=== PATIENT | male | born 1950 | race Caucasian/White ===

== ENCOUNTER 2017-11-20 19:02 | Emergency (ER) | payer MEDICARE, OTHER ==
--- OUTSIDE RECORDS SUMMARY | 2017-11-20 19:09 | XMS REPORT ---
:1950 External Reference #:[id number] Author Organization [facility] Address [address] [place] [id number] Phone [phone] Care Team Providers Name Role Phone Davin Dotson MD FACP Primary Care Physician Unavailable Payers Type Date Identification Numbers Payment Provider Subscriber Commercial Effective: Policy Number: BS KOBE Vic Lamb Job 2012 [id number] Expires: 2013 Group Name: [facility] [address] [address] PayID: [id number] [place] [address] Medigap Part B Effective: Policy Number: CPHL [employer] [place] M 2012 [id number] Julian Job Group Number: [id number] [address] PayID: [id number] [place] [address] Commercial Effective: Policy Number: [id number] Medicare Vic Lamb 2014 [id number] [facility] Job Expires: 2016 PayID: [id number] [address] [address] [place] [address] Medicare Primary Effective: Policy Number: Medicare [place] Vic Lamb 2016 [id number] Job PayID: [id number] [address] [place] [address] Advance Directives Type Date Description Status Comment Other Directive 01/17/2007 Living Will, Health Care Current and Verified Proxy Problems Date Description Provider Status Onset: 09/14/2017 Obstructive sleep apnea syndrome Davin Dotson MD Active Onset: 08/24/2016 Polymyalgia rheumatica Davin Dotson MD Active Onset: 12/31/2014 Localized, primary osteoarthritis of Davin Dotson MD Active the ankle and/or foot Onset: 10/02/2014 Hammer toe Davin Dotson MD Active Onset: 07/31/2012 Non-neoplastic nevus Davin Dotson MD Active Family History Date Family Member(s) Problem(s) Comments Father Lung Cancer : (age Father due to Lung Smoker, heavy ETOH use and 62 Years) Cancer was obese. 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 Hobbies Golfing ETOH Use Currently consumes alcohol 5 per week "[place] or [place]" till 2014 and reduced use to 2-3 per week as of 2015. Smoking 1980 Patient is a former smoker 1 PPD for 10 years, "[place] in 1980" Recreational Drug Use Denies Drug Use Daily Caffeine Coffee 2 / day Exercise Type/Frequency Exercises regularly Play golf during summer. Allergies, Adverse Reactions, Alerts Date Description Reaction Status Severity Comments 11/29/2011 Penicillin Rash active Mild to Moderate Medications Medication Date Status Form Strength Qnty SIG Indications Ordering Provider Shingrix 11/09 Active Suspension 50mcg 1unit one Z00.01 Rec s intramuscul Henna Dotson ar dose now and repeat 2nd dose after 2-6 months. Prevnar 13 11/09 Active Suspension 1unit administer Z00.01 Jin /2018 s half a Henna Dotson, milliliters intramuscul kina one time for inactivated vaccination to prevent pneumococca l infection Cpap 10/17 Active G47.33 Gia, MD Armando Levocetirizine 09/14 Active Tablets 5mg 30tab take one J30.9 Jin Dihydrochloride /2017 s tablet by Henna Dotson mouth in MD the evening for allergic rhinitis Amlodipine 09/14 Active Tablets 2.5mg 90tab take 1 I10 Jin Besylate s tablet by Henna Dotson mouth daily for high blood pressure Prednisone 07/27 Active Tablets 10mg 90tab 1 by mouth M35.3 Jin /2017 s every day A MD Mauri Vitamin D3 07/27 Active Capsules 2000Unit 1 by mouth M62.81 Jin /2018 every day Henna Dotson for bone AR health Flonase Allergy 03/02 Active Suspension 50mcg/Act 19.8m inhale 2 J30.9 Jin Relief l sprays into A Mauri nostril daily in each nostril for nose inflammatio n Multivitamins 09/02 Active Capsules 1 by mouth R53.83 Unknown every day Xyzal Allergy 03/02 Hx Tablets 5mg 30tab take 1 J30.9 Jin 24HR s tablet by Henna Dotson, - mouth every MD 09/14 evening allergy Prednisone 10/27 Hx Tablets 1mg 300ta 10 by mouth M35.3 Jin /2016 bs every day Jeramie Acuña or as 07/27 recommended . M62.81 Prednisone 08/18/2016 - Hx Tablets 10mg 60tabs 2 by mouth every M35.3 Jin A 10/27/2016 day or as MD Mauri recommended M62.81 Doxycycline 08/18/2016 - Hx Tablets 100mg 28tabs take 1 M62.81 Jin A Hyclate 08/18/2016 tablet by MD Mauri mouth 2 times per day for 14 days Aleve 04/04/2014 - Hx Tablets 220mg 1 by mouth 719.49 Unknown 08/24/2016 twice a day as needed Diclofenac 10/09/2013 - Hx Tablets DR 50mg 60tabs take 1 [address]26[address] 12/13/2013 tablet by MD Mauri mouth 2 times per day as needed for arthritis 719.49 Diclofenac 08/09/2013 - Hx Tablets ER 100mg 30tabs take 1 726.65 Jin A Sodium ER 10/09/2013 24HR tablet by MD Mauri mouth daily as needed for arthritis Vitamin D-3 08/22/2012 - Hx Tablets 2000Unit 1 by mouth 268.9 Jin A 08/22/2012 every day MD Mauri Zostavax 07/31/2012 - Hx Solution [id number] 1units 1 injection Jin A 10/01/2014 Rec /0.65ML MD Mauri No Active 11/29/2011 - Hx Jin A Medications 07/31/2012 MD Mauri Aleve 04/04/2009 - Hx Tablets 220mg 1 by mouth 719.49 Unknown 08/09/2013 twice a day Immunizations CPT Code Status Date Vaccine Lot # [id number] Given 01/01/2017 Influenza Vaccine Quadrivalent Preser/Antibiotic Free [place] Use [id number] Given 01/22/2016 Influenza Virus Split 3 Yrs And Above For Intramuscular Use 48384 Given 01/03/2016 Influenza Virus Split 3 Yrs And Above For Intramuscular Use U-Flu Given 02/14/2015 Influenza,Unspecified 25920 Given 02/14/2015 Influenza Virus Split 3 Yrs And Above For Intramuscular Use 66560 Given 10/02/2014 Pneumococcal Vaccine 2Yrs Or Older [id number] 38249 Given 12/03/2013 Zoster Shingles Vaccine For Subcutaneous Injection 69559 Given 08/03/2011 Tdap-Tetanus, Diphtheria Toxoids/Acellular Pertussis Vaccine 7+ 35381 Given 12/03/2010 Influenza Virus Split 3 Yrs And Above For Intramuscular Use Vital Signs Date Vital Result Comment 11/09/2017 Body Temperature 98.2 F O2 % BldC Oximetry 98 % Heart Rate 65 /min BP Systolic 125 mmHg BP Diastolic 80 mmHg BMI (Body Mass Index) 31.2 kg/m2 Weight 230.00 lb Height 72 inches 6'0" 09/29/2017 Heart Rate 72 /min BP Systolic 110 mmHg BP Diastolic 75 mmHg Weight 223.00 lb 09/14/2017 Heart Rate 86 /min BP Systolic 145 mmHg BP Diastolic 80 mmHg Weight 224.00 lb 07/27/2017 Heart Rate 60 /min BP Systolic 125 mmHg BP Diastolic 75 mmHg Weight 226.00 lb w/ Shoes 07/12/2017 Heart Rate 56 /min BP Systolic 170 mmHg BP Diastolic 85 mmHg BP Systolic Recheck 165 mmHg BP Diastolic Recheck 90 mmHg BMI (Body Mass Index) 30.6 kg/m2 Weight 226.00 lb Height 72 inches 6'0" 03/02/2017 Body Temperature 97.8 F Heart Rate 64 /min BP Systolic 125 mmHg BP Diastolic 80 mmHg 10/27/2016 Heart Rate 76 /min BP Systolic 122 mmHg BP Diastolic 75 mmHg BMI (Body Mass Index) 28.1 kg/m2 Weight 207.00 lb Height 72 inches 6'0" 08/24/2016 Body Temperature 97.8 F Weight 201.00 lb 08/18/2016 Body Temperature 98.3 F Heart Rate 76 /min BP Systolic 135 mmHg BP Diastolic 80 mmHg Weight 205.00 lb 03/03/2016 Weight 228.00 lb 10/08/2015 O2 % BldC Oximetry 97 % Heart Rate 53 /min BP Systolic 122 mmHg BP Diastolic 70 mmHg BMI (Body Mass Index) 29.3 kg/m2 Weight 219.00 lb Height 72.5 inches 6'0.50" 06/30/2015 O2 % BldC Oximetry 98 % Heart Rate 58 /min BP Systolic 125 mmHg BP Diastolic 80 mmHg Weight 220.00 lb 05/06/2015 Body Temperature 98.4 F Heart Rate 80 /min BP Systolic 115 mmHg BP Diastolic 80 mmHg 10/02/2014 O2 % BldC Oximetry 98 % Heart Rate 61 /min BP Systolic 135 mmHg BP Diastolic 80 mmHg BMI (Body Mass Index) 29.8 kg/m2 Weight 223.00 lb Height 72.5 inches 6'0.50" 10/09/2013 Body Temperature 98.2 F O2 % BldC Oximetry 97 % Heart Rate 84 /min BP Systolic 125 mmHg BP Diastolic 70 mmHg Height 73 inches 6'1" 08/09/2013 Body Temperature 98.3 F O2 % BldC Oximetry 97 % Heart Rate 77 /min BP Systolic 115 mmHg BP Diastolic 80 mmHg BMI (Body Mass Index) 28.4 kg/m2 Weight 215.00 lb in office, clothed Height 73 inches 6'1" 08/22/2012 Heart Rate 68 /min BP Systolic 125 mmHg BP Diastolic 80 mmHg Weight 220.00 lb 07/31/2012 Body Temperature 97.6 F O2 % BldC Oximetry 97 % Ra, AT Rest Heart Rate 65 /min BP Systolic 140 mmHg Bilateral Ue BP Diastolic 85 mmHg Bilateral Ue BMI (Body Mass Index) 29.7 kg/m2 Weight 225.00 lb Height 73 inches 6'1" Results Test Date Test Result H/L Range Note CBC No Diff 10/27/2017 White Blood Count 8.1 10^3/uL 3.5-10.8 Red Blood Count 5.30 10^6/uL 4.00-5.40 Hemoglobin 16.5 g/dL 14.0-18.0 Hematocrit 48 % 42-52 Mean Corpuscular Volume 90 fL 80-94 Mean Corpuscular Hemoglobin 31 pg 27-31 Mean Corpuscular HGB Conc 35 g/dL 31-36 Red Cell Distribution Width 14 % 10.5-15 Platelet Count 222 10^3/uL 150-450 Mean Platelet Volume 7.7 um3 7.4-10.4 Comp Metabolic Panel 10/27/2017 Sodium 141 mmol/L 135-145 Potassium 4.3 mmol/L 3.5-5.0 Chloride 105 mmol/L 101-111 Co2 Carbon Dioxide 28 mmol/L 22-32 Anion Gap 8 mmol/L 2-11 Glucose 91 mg/dL 70-100 Blood Urea Nitrogen 31 mg/dL High 6-24 Creatinine 1.20 mg/dL High 0.67-1.17 BUN/Creatinine Ratio 25.8 High 8-20 Calcium 9.5 mg/dL 8.6-10.3 Total Protein 6.6 g/dL 6.4-8.9 Albumin 4.2 g/dL 3.2-5.2 Globulin 2.4 g/dL 2-4 Albumin/Globulin Ratio 1.8 1-3 Total Bilirubin 0.70 mg/dL 0.2-1.0 Alkaline Phosphatase 83 U/L 34-104 Alt 24 U/L 7-52 Ast 14 U/L 13-39 Egfr Non- 60.2 >60 Egfr 72.9 >60 1 Lipid Profile (Trig/Chol/HDL) 10/27/2017 Triglycerides 138 mg/dL 2 Cholesterol 181 mg/dL 3 HDL Cholesterol 60.3 mg/dL 4 LDL Cholesterol 93 mg/dL 5 Laboratory test finding 10/27/2017 PSA Screening 1.280 ng/mL 0-4.000 6 Metanephrines Plasma 09/15/2017 Plasma Free 0.39 nmol/L <0.90 Normetanephrine Plasma Free Metanephrine 0.22 nmol/L <0.50 7 Hemoglobin/Hematacrit 09/15/2017 Hemoglobin 16.6 g/dL 14.0-18.0 Hematocrit 47 % 42-52 Liver Function Panel 09/15/2017 Total Protein 6.5 g/dL 6.4-8.9 Albumin 4.1 g/dL 3.2-5.2 Globulin 2.4 g/dL 2-4 Albumin/Globulin Ratio 1.7 1-3 Total Bilirubin 0.80 mg/dL 0.2-1.0 Direct Bilirubin 0.10 mg/dL 0.03-0.18 Indirect Bilirubin 0.7 mg/dL 0.3-1.0 Alkaline Phosphatase 83 U/L 34-104 Alt 18 U/L 7-52 Ast 11 U/L Low 13-39 CBC No Diff 07/12/2017 White Blood Count 9.1 10^3/uL 3.5-10.8 Red Blood Count 5.58 10^6/uL High 4.0-5.4 Hemoglobin 17.4 g/dL 14.0-18.0 Hematocrit 49 % 42-52 Mean Corpuscular Volume 88 fL 80-94 Mean Corpuscular Hemoglobin 31 pg 27-31 Mean Corpuscular HGB Conc 36 g/dL 31-36 Red Cell Distribution Width 14 % 10.5-15 Platelet Count 231 10^3/uL 150-450 8 Mean Platelet Volume 8.0 um3 7.4-10.4 Basic Metabolic Panel 07/12/2017 Sodium 138 mmol/L Low 139-145 Potassium 4.4 mmol/L 3.5-5.0 Chloride 105 mmol/L 101-111 Co2 Carbon Dioxide 24 mmol/L 22-32 Anion Gap 9 mmol/L 2-11 Glucose 91 mg/dL 70-100 Blood Urea Nitrogen 26 mg/dL High 6-24 Creatinine 1.11 mg/dL 0.67-1.17 BUN/Creatinine Ratio 23.4 High 8-20 Calcium 9.9 mg/dL 8.6-10.3 Egfr Non- 65.9 >60 Egfr 84.7 >60 9 Laboratory test finding 07/12/2017 Erythrocyte Sed Rate 4 mm/Hr 0-40 CBC No Diff 10/08/2016 White Blood Count 7.8 10^3/uL 3.5-10.8 Red Blood Count 5.06 10^6/uL 4.0-5.4 Hemoglobin 15.6 g/dL 14.0-18.0 Hematocrit 46 % 42-52 Mean Corpuscular Volume 91 fL 80-94 Mean Corpuscular Hemoglobin 31 pg 27-31 Mean Corpuscular HGB Conc 34 g/dL 31-36 Red Cell Distribution Width 14 % 10.5-15 Platelet Count 198 10^3/uL 150-450 Mean Platelet Volume 8 um3 7.4-10.4 Basic Metabolic Panel 10/08/2016 Sodium 139 mmol/L 133-145 Potassium 4.1 mmol/L 3.5-5.0 Chloride 106 mmol/L 101-111 Co2 Carbon Dioxide 27 mmol/L 22-32 Anion Gap 6 mmol/L 2-11 Glucose 95 mg/dL 70-100 Blood Urea Nitrogen 29 mg/dL High 6-24 Creatinine 1.03 mg/dL 0.67-1.17 BUN/Creatinine Ratio 28.2 High 8-20 Calcium 9.6 mg/dL 8.6-10.3 Egfr Non- 72.0 >60 Egfr 92.6 >60 10 Laboratory test finding 10/08/2016 Erythrocyte Sed Rate 5 mm/Hr 0-40 Lipid Profile (Trig/Chol/HDL) 10/08/2016 Triglycerides 93 mg/dL <150 11 Cholesterol 170 mg/dL <200 12 HDL Cholesterol 67.9 mg/dL >40 13 LDL Cholesterol 84 mg/dL <130 14 Laboratory test finding 10/08/2016 PSA Screening 1.019 ng/mL 0-4.000 15 Urinalysis Profile 10/08/2016 Urine Color Yellow Urine Appearance Clear Urine Specific Mallie 1.021 1.010-1.030 Urine pH 5.0 5-9 Urine Urobilinogen Negative Negative Urine Ketones Negative Negative Urine Protein Negative Negative Urine Leukocytes Negative Negative Urine Blood Negative Negative Urine Nitrite Negative Negative Urine Bilirubin Negative Negative Urine Glucose Negative Negative Xray 08/18/2016 Hand, Min. 3 Views, Bilateral Moderate OA CBC Auto Diff 08/18/2016 White Blood Count 9.7 10^3/uL 3.5-10.8 Red Blood Count 5.19 10^6/uL 4.0-5.4 Hemoglobin 15.5 g/dL 14.0-18.0 Hematocrit 45 % 42-52 Mean Corpuscular Volume 87 fL 80-94 Mean Corpuscular Hemoglobin 30 pg 27-31 Mean Corpuscular HGB Conc 34 g/dL 31-36 Red Cell Distribution Width 14 % 10.5-15 Platelet Count 189 10^3/uL 150-450 Mean Platelet Volume 9 um3 7.4-10.4 Abs Neutrophils 7.8 10^3/uL High 1.5-7.7 Abs Lymphocytes 1.2 10^3/uL 1.0-4.8 Abs Monocytes 0.5 10^3/uL 0-0.8 Abs Eosinophils 0.2 10^3/uL 0-0.6 Abs Basophils 0 10^3/uL 0-0.2 Abs Nucleated RBC 0.01 10^3/uL Granulocyte % 80.3 % 38-83 Lymphocyte % 11.9 % Low 25-47 Monocyte % 5.5 % 1-9 Eosinophil % 1.9 % 0-6 Basophil % 0.4 % 0-2 Nucleated Red Blood Cells % 0.1 Basic Metabolic Panel 08/18/2016 Sodium 136 mmol/L 133-145 Potassium 3.8 mmol/L 3.5-5.0 Chloride 104 mmol/L 101-111 Co2 Carbon Dioxide 23 mmol/L 22-32 Anion Gap 9 mmol/L 2-11 Glucose 91 mg/dL 70-100 Blood Urea Nitrogen 22 mg/dL 6-24 Creatinine 1.05 mg/dL 0.67-1.17 BUN/Creatinine Ratio 21.0 High 8-20 Calcium 9.5 mg/dL 8.6-10.3 Egfr Non- 70.5 >60 Egfr 90.6 >60 16 Laboratory test finding 08/18/2016 Erythrocyte Sed Rate 10 mm/Hr 0-40 Anti Nuclear Antibody 0.4 U 17 Rheumatoid Factor <15 IU/mL <15 18 Uric Acid 6.4 mg/dL 4.4-7.6 Lyme Western Blot 08/18/2016 Lyme Disease IgG Ab WB Negative Negative Lyme Disease IgG Bands Present p41, kDa Lyme Disease IgM Ab WB Negative Negative Lyme Disease IgM Bands Present No bands detecte <SEE NOTE> kDa 19 Lyme Disease Interpretation See Comment 20 Xray 05/11/2016 Ultrasound, Retroperitoneal Benign mass (Eg, Renal, Aorta, Nodes) Basic Metabolic Panel 03/18/2016 Sodium 137 mmol/L 133-145 21 Potassium 4.4 mmol/L 3.5-5.0 21 Chloride 103 mmol/L 101-111 21 Co2 Carbon Dioxide 26 mmol/L 22-32 21 Anion Gap 8 mmol/L 2-11 21 Glucose 104 mg/dL High 70-100 21 Blood Urea Nitrogen 27 mg/dL High 6-24 21 Creatinine 1.30 mg/dL High 0.67-1.17 21 BUN/Creatinine Ratio 20.8 High 8-20 21 Calcium 9.7 mg/dL 8.6-10.3 21 Egfr Non- 55.1 >60 21 Egfr 70.8 >60 21, 22 Laboratory test finding 02/23/2016 Potassium Redraw 4.0 mmol/L 3.5-5.0 Magnesium 2.0 mg/dL 1.9-2.7 Ast Redraw 13 U/L 13-39 Laboratory test finding 02/23/2016 Lactic Acid 0.8 mmol/L 0.5-2.0 23 CBC Auto Diff 02/23/2016 White Blood Count 9.0 10^3/uL 3.5-10.8 Red Blood Count 5.49 10^6/uL High 4.0-5.4 Hemoglobin 16.9 g/dL 14.0-18.0 Hematocrit 48 % 42-52 Mean Corpuscular Volume 87 fL 80-94 Mean Corpuscular Hemoglobin 31 pg 27-31 Mean Corpuscular HGB Conc 35 g/dL 31-36 Red Cell Distribution Width 14 % 10.5-15 Abs Neutrophils 6.3 10^3/uL 1.5-7.7 Abs Lymphocytes 1.8 10^3/uL 1.0-4.8 Abs Monocytes 0.6 10^3/uL 0-0.8 Abs Eosinophils 0.3 10^3/uL 0-0.6 Abs Basophils 0.1 10^3/uL 0-0.2 Abs Nucleated RBC 0.05 10^3/uL Granulocyte % 69.5 % 38-83 Lymphocyte % 20.4 % Low 25-47 Monocyte % 6.5 % 1-9 Eosinophil % 3.0 % 0-6 Basophil % 0.6 % 0-2 Nucleated Red Blood Cells % 0.6 Platelet Count 309 10^3/uL 150-450 24 Mean Platelet Volume 9 um3 7.4-10.4 Laboratory test finding 02/23/2016 Activated Partial 16.8 seconds Low 26.0 -36.3 Thrombo Time D Dimer Quantitative 580 ng/mL High Less Than 230 25 B Type Natriuretic Peptide 203 pg/mL High 26 Inr/Protime 02/23/2016 Inr 0.91 0.89-1.11 Laboratory test finding 02/23/2016 TSH (Thyroid Stim Horm) 1.95 mcIU/mL 0.34-5.60 Magnesium TNP mg/dL 1.9-2.7 27 CKMB 02/23/2016 CKMB ng/mL 3.1 ng/mL 0.6-6.3 Laboratory test finding 02/23/2016 Lipase 17 U/L 11.0-82.0 Creatine Kinase(CK) 76 U/L 10-223 C Reactive Protein 1.24 mg/L < 5.00 28 Troponin I 0.01 ng/mL <0.04 29 Comp Metabolic Panel 02/23/2016 Sodium 136 mmol/L 133-145 Chloride 103 mmol/L 101-111 Co2 Carbon Dioxide 26 mmol/L 22-32 Glucose 83 mg/dL 70-100 Blood Urea Nitrogen 28 mg/dL High 6-24 Creatinine 1.42 mg/dL High 0.67-1.17 BUN/Creatinine Ratio 19.7 8-20 Calcium 9.4 mg/dL 8.6-10.3 Total Protein 7.1 g/dL 6.4-8.9 Albumin 4.1 g/dL 3.2-5.2 Globulin 3.0 g/dL 2-4 Albumin/Globulin Ratio 1.4 1-3 Total Bilirubin 0.80 mg/dL 0.2-1.0 Alkaline Phosphatase 75 U/L 34-104 Alt 17 U/L 7-52 Egfr Non- 49.7 >60 Egfr 64.0 >60 30 Potassium TNP mmol/L 3.5-5.0 31 Anion Gap TNP mmol/L 2-11 Ast TNP U/L 13-39 32 Xray 10/29/2015 Ultrasound, Stable Rt Adrenal Retroperitoneal (Eg, ms Renal, Aorta, Nodes) Comp Metabolic Panel 10/10/2015 Sodium 137 mmol/L 133-145 Potassium 4.4 mmol/L 3.5-5.0 Chloride 105 mmol/L 101-111 Co2 Carbon Dioxide 24 mmol/L 22-32 Anion Gap 8 mmol/L 2-11 Glucose 101 mg/dL High 70-100 Blood Urea Nitrogen 20 mg/dL 6-24 Creatinine 1.17 mg/dL 0.67-1.17 BUN/Creatinine Ratio 17.1 8-20 Calcium 9.8 mg/dL 8.6-10.3 Total Protein 6.7 g/dL 6.4-8.9 Albumin 4.2 g/dL 3.2-5.2 Globulin 2.5 g/dL 2-4 Albumin/Globulin Ratio 1.7 1-3 Total Bilirubin 1.00 mg/dL 0.2-1.0 Alkaline Phosphatase 87 U/L 34-104 Alt 18 U/L 7-52 Ast 15 U/L 13-39 Egfr Non- 62.4 >60 Egfr 80.2 >60 33 Lipid Profile (Trig/Chol/HDL) 10/10/2015 Triglycerides 110 mg/dL <150 34 Cholesterol 159 mg/dL <200 35 HDL Cholesterol 47.0 mg/dL >35 36 LDL Cholesterol 90 mg/dL <160 37 Laboratory test finding 10/10/2015 PSA Screening 0.867 ng/mL 0-4.000 38 Urinalysis Profile 10/10/2015 Urine Color Yellow Urine Appearance Clear Urine Specific Mallie 1.015 1.010-1.030 Urine pH 5.0 5-9 Urine Urobilinogen Negative Negative Urine Ketones Negative Negative Urine Protein Negative Negative Urine Leukocytes Negative Negative Urine Blood Negative Negative Urine Nitrite Negative Negative Urine Bilirubin Negative Negative Urine Glucose Negative Negative CBC No Diff 10/10/2015 White Blood Count 6.2 10^3/uL 3.5-10.8 Red Blood Count 5.53 10^6/uL High 4.0-5.4 Hemoglobin 16.7 g/dL 14.0-18.0 Hematocrit 49 % 42-52 Mean Corpuscular Volume 88 fL 80-94 Mean Corpuscular Hemoglobin 30 pg 27-31 Mean Corpuscular HGB Conc 34 g/dL 31-36 Red Cell Distribution Width 15 % 10.5-15 Platelet Count 209 10^3/uL 150-450 Mean Platelet Volume 8 um3 7.4-10.4 Basic Metabolic Panel 08/04/2015 Sodium 140 mmol/L 133-145 39 Potassium 4.2 mmol/L 3.5-5.0 39 Chloride 107 mmol/L 101-111 39 Co2 Carbon Dioxide 26 mmol/L 22-32 39 Anion Gap 7 mmol/L 2-11 39 Glucose 106 mg/dL High 70-100 39 Blood Urea Nitrogen 20 mg/dL 6-24 39 Creatinine 1.21 mg/dL High 0.67-1.17 39 BUN/Creatinine Ratio 16.5 8-20 39 Calcium 9.5 mg/dL 8.6-10.3 39 Egfr Non- 60.0 >60 39 Egfr 77.2 >60 39, 40 Basic Metabolic Panel 07/07/2015 Sodium 138 mmol/L 133-145 Potassium 4.2 mmol/L 3.5-5.0 Chloride 106 mmol/L 101-111 Co2 Carbon Dioxide 24 mmol/L 22-32 Anion Gap 8 mmol/L 2-11 Glucose 99 mg/dL 70-100 Blood Urea Nitrogen 26 mg/dL High 6-24 Creatinine 1.40 mg/dL High 0.67-1.17 BUN/Creatinine Ratio 18.6 8-20 Calcium 9.5 mg/dL 8.6-10.3 Egfr Non- 50.7 >60 Egfr 65.2 >60 41 Laboratory test finding 07/07/2015 Cortisol 15.22 ?g/dL 8.7-22.4 42 Acth 18 pg/mL 10-60 43 Renin 1.1 ng/mL/h Low 2.9-10.8 44 CBC No Diff 07/07/2015 White Blood Count 6.6 10^3/uL 3.5-10.8 Red Blood Count 5.30 10^6/uL 4.0-5.4 Hemoglobin 15.8 g/dL 14.0-18.0 Hematocrit 48 % 42-52 Mean Corpuscular Volume 90 fL 80-94 Mean Corpuscular Hemoglobin 30 pg 27-31 Mean Corpuscular HGB Conc 33 g/dL 31-36 Red Cell Distribution Width 14 % 10.5-15 Platelet Count 242 10^3/uL 150-450 Mean Platelet Volume 8 um3 7.4-10.4 Xray 07/02/2015 Ultrasound, Abdominal; 2.5cm Rt Adrenalnode Limited CBC Auto Diff 06/14/2015 White Blood Count 13.3 10^3/uL High 3.5-10.8 Red Blood Count 5.88 10^6/uL High 4.0-5.4 Hemoglobin 17.7 g/dL 14.0-18.0 Hematocrit 52 % 42-52 Mean Corpuscular Volume 88 fL 80-94 Mean Corpuscular Hemoglobin 30 pg 27-31 Mean Corpuscular HGB Conc 34 g/dL 31-36 Red Cell Distribution Width 14 % 10.5-15 Platelet Count 266 10^3/uL 150-450 Mean Platelet Volume 8 um3 7.4-10.4 Abs Neutrophils 12.4 10^3/uL High 1.5-7.7 Abs Lymphocytes 0.7 10^3/uL Low 1.0-4.8 Abs Monocytes 0.3 10^3/uL 0-0.8 Abs Eosinophils 0 10^3/uL 0-0.6 Abs Basophils 0 10^3/uL 0-0.2 Abs Nucleated RBC 0.01 10^3/uL Granulocyte % 92.7 % High 38-83 Lymphocyte % 4.9 % Low 25-47 Monocyte % 2.0 % 1-9 Eosinophil % 0.2 % 0-6 Basophil % 0.2 % 0-2 Nucleated Red Blood Cells % 0.1 Laboratory test finding 06/14/2015 Lactic Acid 1.1 mmol/L 0.5-2.0 45 Comp Metabolic Panel 06/14/2015 Sodium 136 mmol/L 133-145 Potassium 3.8 mmol/L 3.5-5.0 Chloride 101 mmol/L 101-111 Co2 Carbon Dioxide 24 mmol/L 22-32 Anion Gap 11 mmol/L 2-11 Glucose 149 mg/dL High 70-100 Blood Urea Nitrogen 20 mg/dL 6-24 Creatinine 1.10 mg/dL 0.67-1.17 BUN/Creatinine Ratio 18.2 8-20 Calcium 9.8 mg/dL 8.6-10.3 Total Protein 7.5 g/dL 6.4-8.9 Albumin 4.6 g/dL 3.2-5.2 Globulin 2.9 g/dL 2-4 Albumin/Globulin Ratio 1.6 1-3 Total Bilirubin 1.30 mg/dL High 0.2-1.0 Alkaline Phosphatase 95 U/L 34-104 Alt 19 U/L 7-52 Ast 13 U/L 13-39 Egfr Non- 67.0 >60 Egfr 86.1 >60 46 Laboratory test finding 06/14/2015 Lipase 11 U/L 11.0-82.0 C Reactive Protein 16.60 mg/L High < 5.00 47 CBC Auto Diff 11/21/2014 White Blood Count 7.4 10^3/uL 4.8-10.8 Red Blood Count 5.46 10^6/uL High 4.0-5.4 Hemoglobin 17.0 g/dL 14.0-18.0 Hematocrit 50 % 42-52 Mean Corpuscular Volume 91 fL 80-94 Mean Corpuscular Hemoglobin 31 pg 27-31 Mean Corpuscular HGB Conc 34 g/dL 31-36 Red Cell Distribution Width 13 % 10.5-15 Platelet Count 216 10^3/uL 150-450 Mean Platelet Volume 8 um3 7.4-10.4 Abs Neutrophils 5.1 10^3/uL 1.5-7.7 Abs Lymphocytes 1.4 10^3/uL 1.0-4.8 Abs Monocytes 0.5 10^3/uL 0-0.8 Abs Eosinophils 0.4 10^3/uL 0-0.6 Abs Basophils 0.1 10^3/uL 0-0.2 Abs Nucleated RBC 0.02 10^3/uL Granulocyte % 69.2 % 38-83 Lymphocyte % 18.7 % Low 25-47 Monocyte % 6.4 % 1-9 Eosinophil % 4.8 % 0-6 Basophil % 0.9 % 0-2 Nucleated Red Blood Cells % 0.3 Laboratory test finding 11/21/2014 Lactic Acid 1.9 mmol/L 0.5-2.2 Urinalysis Profile 11/21/2014 Urine Color Yellow Urine Appearance Clear Urine Specific Mallie 1.012 1.010-1.030 Urine pH 5.0 5-9 Urine Urobilinogen Negative Negative Urine Ketones Negative Negative Urine Protein Negative Negative Urine Leukocytes Negative Negative Urine Blood Negative Negative Urine Nitrite Negative Negative Urine Bilirubin Negative Negative Urine Glucose Negative Negative Laboratory test finding 11/21/2014 Magnesium 1.9 mg/dL 1.9-2.7 Troponin I 0.01 ng/mL <0.03 48 Comp Metabolic Panel 11/21/2014 Sodium 136 mmol/L 133-145 Potassium 4.1 mmol/L 3.5-5.0 Chloride 104 mmol/L 101-111 Co2 Carbon Dioxide 25 mmol/L 22-32 Anion Gap 7 mmol/L 2-11 Glucose 101 mg/dL High 70-100 Blood Urea Nitrogen 17 mg/dL 6-24 Creatinine 1.06 mg/dL 0.67-1.17 BUN/Creatinine Ratio 16.0 8-20 Calcium 9.2 mg/dL 8.6-10.3 Total Protein 6.6 g/dL 6.4-8.9 Albumin 4.0 g/dL 3.2-5.2 Globulin 2.6 g/dL 2-4 Albumin/Globulin Ratio 1.5 1-3 Total Bilirubin 0.70 mg/dL 0.2-1.0 Alkaline Phosphatase 84 U/L 34-104 Alt 22 U/L 7-52 Ast 14 U/L 13-39 Egfr Non- 69.9 >60 Egfr 89.9 >60 49 Laboratory test finding 10/03/2014 Vitamin D Total 25(Oh) 30.7 ng/mL 30- 50 50 Lipid Profile (Trig/Chol/HDL) 10/03/2014 Triglycerides 82 mg/dL 51 Cholesterol 140 mg/dL 52 HDL Cholesterol 38.9 mg/dL 53 LDL Cholesterol 85 mg/dL 54 Lyme Western Blot 10/03/2014 Lyme Disease IgG Ab WB Negative Negative Lyme Disease IgG Bands Present p41, kDa Lyme Disease IgM Ab WB Negative Negative Lyme Disease IgM Bands Present No bands detecte <SEE NOTE> kDa 55 Lyme Disease Interpretation See Comment 56 Laboratory test finding 10/03/2014 Erythrocyte Sed Rate 6 mm/Hr 0-40 TSH (Thyroid Stim Horm) 1.54 ?IU/mL 0.34-5.60 57 Comp Metabolic Panel 10/03/2014 Sodium 138 mmol/L 133-145 Potassium 4.2 mmol/L 3.5-5.0 Chloride 107 mmol/L 101-111 Co2 Carbon Dioxide 23 mmol/L 22-32 Anion Gap 8 mmol/L 2-11 Glucose 92 mg/dL 70-100 Blood Urea Nitrogen 32 mg/dL High 6-24 Creatinine 1.13 mg/dL 0.67-1.17 BUN/Creatinine Ratio 28.3 High 8-20 Calcium 9.1 mg/dL 8.6-10.3 Total Protein 6.5 g/dL 6.4-8.9 Albumin 4.2 g/dL 3.2-5.2 Globulin 2.3 g/dL 2-4 Albumin/Globulin Ratio 1.8 1-3 Total Bilirubin 0.80 mg/dL 0.2-1.0 Alkaline Phosphatase 82 U/L 34-104 Alt 20 U/L 7-52 Ast 15 U/L 13-39 Egfr Non- 65.1 >60 Egfr 83.8 >60 58 CBC No Diff 10/03/2014 White Blood Count 6.9 10^3/uL 4.8-10.8 Red Blood Count 5.30 10^6/uL 4.0-5.4 Hemoglobin 16.2 g/dL 14.0-18.0 Hematocrit 48 % 42-52 Mean Corpuscular Volume 90 fL 80-94 Mean Corpuscular Hemoglobin 31 pg 27-31 Mean Corpuscular HGB Conc 34 g/dL 31-36 Red Cell Distribution Width 13 % 10.5-15 Platelet Count 218 10^3/uL 150-450 Mean Platelet Volume 8 um3 7.4-10.4 Order 11/29/2013 Colonoscopy Normal - 10 year f/u Basic Metabolic Panel 08/09/2013 Sodium 138 mmol/L 133-145 Potassium 4.3 mmol/L 3.7-5.6 Chloride 106 mmol/L 101-111 Co2 Carbon Dioxide 23 mmol/L 22-32 Anion Gap 9 mmol/L 2-11 Glucose 79 mg/dL 70-100 Blood Urea Nitrogen 25 mg/dL High 6-24 Creatinine 1.25 mg/dL High 0.67-1.17 BUN/Creatinine Ratio 20.0 8-20 Calcium 9.6 mg/dL 8.6-10.3 Egfr Non- 58.2 >60 Egfr 74.8 >60 59 Vitamin D, 25 Hydroxy 08/09/2013 25-Hydroxy Vitamin D2 <4.0 ng/mL 25-Hydroxy Vitamin D3 33 ng/mL 25-Hydroxy Vitamin D Total 33 ng/mL 25-50 60 CBC No Diff 08/09/2013 White Blood Count 10.2 10^3/uL 4.8-10.8 Red Blood Count 5.02 10^6/uL 4.0-5.4 Hemoglobin 15.4 g/dL 14.0-18.0 Hematocrit 43 % 42-52 Mean Corpuscular Volume 86 fL 80-94 Mean Corpuscular Hemoglobin 31 pg 27-31 Mean Corpuscular HGB Conc 35 g/dL 31-36 Red Cell Distribution Width 13 % 10.5-15 Platelet Count 290 10^3/uL 150-450 Mean Platelet Volume 8 um3 7.4-10.4 Laboratory test finding 08/01/2012 PSA Total Screen 0.73 0.0-4.0 Vitamin D, 25-Hydroxy 22.5 Low 30.0-100.0 Rheumatoid Factor NEGATIVE Negative CCP Igg 2 0-19 Uric Acid 6.7 2.1-7.4 TSH Thyroid Stimulating Horm 1.99 0.49-4.67 Esr Sedimentation Rate 1 0-20 C-Reactive Protein Quant <2.9 0.0-4.9 Lipid Panel 08/01/2012 Cholesterol Total 151 120-200 High Density Lipoprotein 47 29-83 LDL Low Density Lipoprotein 86 62-185 Triglycerides 89 16-231 CMP 08/01/2012 Albumin 4.2 3.5-5.0 Alt - SGPT 28 Low 30-65 Calcium Level 9.2 8.5-10.1 Carbon Dioxide 24 18-29 Chloride 109 High 98-107 Creatinine W/O Egfr 1.2 0.5-1.4 Glucose 94 70-100 Alkaline Phosphatase 92 50-136 Potassium 4.0 3.5-5.1 Protein Total 7.6 6.3-8.0 Sodium 142 136-145 Ast - Sgot 12 Low 16-40 BUN 17 5-23 Albumin 4.2 3.5-5.0 Bilirubin Total 1.0 0.2-1.2 GFR-Glomerular Filtration Rate >60 >60 CBC No Diff 08/01/2012 Hematocrit 47.7 38.0-48.0 Hemoglobin 17.3 High 12.8-17.0 Platelet Count 234 150-400 RBC Red Blood Count 5.53 4.20-5.80 RDW 13.3 11.6-15.8 White Blood Count 5.7 3.4-10.5 MCH (Corpuscular Hemoglobin) 31.3 27.0-33.0 MCHC (Corpuscular Hemog Conc) 36.3 High 31.7-36.0 MPV 9.7 6.6-10.6 MCV (Corpuscular Volume) 86.3 80.0-96.0 1 Because ethnic data is not always readily available, this report includes an eGFR for both -Americans and non- Americans. The National Kidney Disease Education Program (NKDEP) does not endorse the use of the MDRD equation for patients that are not between the ages of 18 and 70, are , have extremes of body size, muscle mass, or nutritional status, or are non- or non-. According to the National Kidney Foundation, irrespective of diagnosis, the stage of the disease is based on the level of kidney function: Stage Description GFR(mL/min/1.73 m(2)) 1 Kidney damage with normal or decreased GFR 90 2 Kidney damage with mild decrease in GFR 60-89 3 Moderate decrease in GFR 30-59 4 Severe decrease in GFR 15-29 5 Kidney failure <15 (or dialysis) 2 Desirable: <150 Borderline High: 150-199 High: 200-499 Very High: >500 3 Desirable: <200 Borderline High: 200-239 High: >239 4 Low: <40 Desirable: 40-60 High: >60 5 Desirable: <100 Near Optimal: 100-129 Borderline High: 130-159 High: 160-189 Very High: >189 6 Serum levels of PSA measured using the [employer] DXI Hybritech immunoassay should not be interpreted as absolute evidence of the presence or absence of disease. The PSA value should be used in conjunction with other pertinent clinical diagnostic procedures. The values obtained with different assay methods or kits cannot be used interchangeably. 7 ADDITIONAL INFORMATION This test was developed and its performance characteristics determined by [facility] in a manner consistent with CLIA requirements. This test has not been cleared or approved by the U.S. Food and Drug Administration. Test Performed by: [facility] - [id number] [place] [address] 8 Platelet count confirmed by estimate 9 Because ethnic data is not always readily available, this report includes an eGFR for both -Americans and non- Americans. The National Kidney Disease Education Program (NKDEP) does not endorse the use of the MDRD equation for patients that are not between the ages of 18 and 70, are , have extremes of body size, muscle mass, or nutritional status, or are non- or non-. According to the National Kidney Foundation, irrespective of diagnosis, the stage of the disease is based on the level of kidney function: Stage Description GFR(mL/min/1.73 m(2)) 1 Kidney damage with normal or decreased GFR 90 2 Kidney damage with mild decrease in GFR 60-89 3 Moderate decrease in GFR 30-59 4 Severe decrease in GFR 15-29 5 Kidney failure <15 (or dialysis) 10 Because ethnic data is not always readily available, this report includes an eGFR for both -Americans and non- Americans. The National Kidney Disease Education Program (NKDEP) does not endorse the use of the MDRD equation for patients that are not between the ages of 18 and 70, are , have extremes of body size, muscle mass, or nutritional status, or are non- or non-. According to the National Kidney Foundation, irrespective of diagnosis, the stage of the disease is based on the level of kidney function: Stage Description GFR(mL/min/1.73 m(2)) 1 Kidney damage with normal or decreased GFR 90 2 Kidney damage with mild decrease in GFR 60-89 3 Moderate decrease in GFR 30-59 4 Severe decrease in GFR 15-29 5 Kidney failure <15 (or dialysis) 11 Desirable <150 Borderline high 150-199 High 200-499 Very High >500 12 Desirable <200 Borderline high 200-239 High >239 13 Low <40 Desirable: 40-60 High: >60 14 Desirable: <100 mg/dL Near Optimal: 100-129 mg/dL Borderline High: 130-159 mg/dL High: 160-189 mg/dL Very High: >189 mg/dL 15 Serum levels of PSA measured using the [employer] DXI Hybritech immunoassay should not be interpreted as absolute evidence of the presence or absence of disease. The PSA value should be used in conjunction with other pertinent clinical diagnostic procedures. The values obtained with different assay methods or kits cannot be used interchangeably. 16 Because ethnic data is not always readily available, this report includes an eGFR for both -Americans and non- Americans. The National Kidney Disease Education Program (NKDEP) does not endorse the use of the MDRD equation for patients that are not between the ages of 18 and 70, are , have extremes of body size, muscle mass, or nutritional status, or are non- or non-. According to the National Kidney Foundation, irrespective of diagnosis, the stage of the disease is based on the level of kidney function: Stage Description GFR(mL/min/1.73 m(2)) 1 Kidney damage with normal or decreased GFR 90 2 Kidney damage with mild decrease in GFR 60-89 3 Moderate decrease in GFR 30-59 4 Severe decrease in GFR 15-29 5 Kidney failure <15 (or dialysis) 17 REFERENCE VALUE <=1.0 (Negative) Test Performed by: [address] [id number] 18 Test Performed by: [facility] - [address] [address] 19 No bands detected 20 Specific serologic response to B. burgdorferi infection is not detected, but cannot rule out early infection during which low or undetectable antibody levels to B. burgdorferi may be present. If clinically indicated, a new serum specimen should be submitted in 7-14 days. ADDITIONAL INFORMATION CDC criteria require >=5 bands for IgG or >=2 bands for IgM for the Immunoblot to be considered positive. Bands (e.g.,p41) may be detected in patients without Lyme disease, and patterns not meeting the CDC criteria should be interpreted with caution. Immunoblot should be ordered only on specimens that are positive or equivocal by a FDA-licensed Lyme disease antibody screening test (e.g., EIA). Test Performed by: [facility] - [place] [id number] 21 FASTING 22 Because ethnic data is not always readily available, this report includes an eGFR for both -Americans and non- Americans. The National Kidney Disease Education Program (NKDEP) does not endorse the use of the MDRD equation for patients that are not between the ages of 18 and 70, are , have extremes of body size, muscle mass, or nutritional status, or are non- or non-. According to the National Kidney Foundation, irrespective of diagnosis, the stage of the disease is based on the level of kidney function: Stage Description GFR(mL/min/1.73 m(2)) 1 Kidney damage with normal or decreased GFR 90 2 Kidney damage with mild decrease in GFR 60-89 3 Moderate decrease in GFR 30-59 4 Severe decrease in GFR 15-29 5 Kidney failure <15 (or dialysis) 23 Specimen hemolyzed. Result may not be valid. [facility] Severe Sepsis and Septic Shock Management Bundle Measure requires all lactic acids initially measuring >2.0 mmol/L be repeated. 24 Platelet count confirmed by smear estimate. 25 Please note: The following may produce a false positive D Dimer test: - Rheumatoid factor greater than 60 IU/ml - Plasma hemoglobin greater than 0.05 gm/dl - Bilirubin greater than 50 mg/dl - Lipids greater than 1000 mg/dl - FDP greater than 20 ug/ml 26 >100 to <200 pg/mL: likely compensated congestive heart failure (CHF) 200 to 400 pg/mL: likely moderate CHF >400 pg/mL: likely moderate to severe CHF 27 Cancelled. Specimen hemolyzed. Unable to perform test requested. Reorder for specimen recollection. HAROON was called for recollect at 1913 on 02/23/16 by [id number] Acute inflammation: >10.00 29 NOTE: Critical Troponin is now >0.03 ng/mL. 99th percentile=0.04 ng/mL Troponin results at [facility] and [facility] are not interchangeable. 30 Because ethnic data is not always readily available, this report includes an eGFR for both -Americans and non- Americans. The National Kidney Disease Education Program (NKDEP) does not endorse the use of the MDRD equation for patients that are not between the ages of 18 and 70, are , have extremes of body size, muscle mass, or nutritional status, or are non- or non-. According to the National Kidney Foundation, irrespective of diagnosis, the stage of the disease is based on the level of kidney function: Stage Description GFR(mL/min/1.73 m(2)) 1 Kidney damage with normal or decreased GFR 90 2 Kidney damage with mild decrease in GFR 60-89 3 Moderate decrease in GFR 30-59 4 Severe decrease in GFR 15-29 5 Kidney failure <15 (or dialysis) 31 Cancelled. Specimen hemolyzed. Unable to perform test requested. Reorder for specimen recollection. HAROON was called for recollect at 191302/23/16 by [id number] Cancelled. Specimen hemolyzed. Unable to perform test requested. Reorder for specimen recollection. HAROON was called for recollect at 191302/23/16 by [id number] 33 Because ethnic data is not always readily available, this report includes an eGFR for both -Americans and non- Americans. The National Kidney Disease Education Program (NKDEP) does not endorse the use of the MDRD equation for patients that are not between the ages of 18 and 70, are , have extremes of body size, muscle mass, or nutritional status, or are non- or non-. According to the National Kidney Foundation, irrespective of diagnosis, the stage of the disease is based on the level of kidney function: Stage Description GFR(mL/min/1.73 m(2)) 1 Kidney damage with normal or decreased GFR 90 2 Kidney damage with mild decrease in GFR 60-89 3 Moderate decrease in GFR 30-59 4 Severe decrease in GFR 15-29 5 Kidney failure <15 (or dialysis) 34 Desirable <150 Borderline high 150-199 High 200-499 Very High >500 35 Desirable <200 Borderline high 200-239 High >239 36 Low <40 Desirable: 40-60 High: >60 37 Desirable: <100 mg/dL Near Optimal: 100-129 mg/dL Borderline High: 130-159 mg/dL High: 160-189 mg/dL Very High: >189 mg/dL 38 Serum levels of PSA measured using the [employer] DXI Hybritech immunoassay should not be interpreted as absolute evidence of the presence or absence of disease. The PSA value should be used in conjunction with other pertinent clinical diagnostic procedures. The values obtained with different assay methods or kits cannot be used interchangeably. 39 PT IS FASTING 40 Because ethnic data is not always readily available, this report includes an eGFR for both -Americans and non- Americans. The National Kidney Disease Education Program (NKDEP) does not endorse the use of the MDRD equation for patients that are not between the ages of 18 and 70, are , have extremes of body size, muscle mass, or nutritional status, or are non- or non-. According to the National Kidney Foundation, irrespective of diagnosis, the stage of the disease is based on the level of kidney function: Stage Description GFR(mL/min/1.73 m(2)) 1 Kidney damage with normal or decreased GFR 90 2 Kidney damage with mild decrease in GFR 60-89 3 Moderate decrease in GFR 30-59 4 Severe decrease in GFR 15-29 5 Kidney failure <15 (or dialysis) 41 Because ethnic data is not always readily available, this report includes an eGFR for both -Americans and non- Americans. The National Kidney Disease Education Program (NKDEP) does not endorse the use of the MDRD equation for patients that are not between the ages of 18 and 70, are , have extremes of body size, muscle mass, or nutritional status, or are non- or non-. According to the National Kidney Foundation, irrespective of diagnosis, the stage of the disease is based on the level of kidney function: Stage Description GFR(mL/min/1.73 m(2)) 1 Kidney damage with normal or decreased GFR 90 2 Kidney damage with mild decrease in GFR 60-89 3 Moderate decrease in GFR 30-59 4 Severe decrease in GFR 15-29 5 Kidney failure <15 (or dialysis) 42 AM 8.7-22.4 PM <10 43 REFERENCE VALUE 10-60 (a.m. collection) Test Performed by: [place] [address] Flange Machine Operator: Celio Espinosa II, M.D., Ph.D. 44 REFERENCE VALUE (Peripheral vein specimen) Na-deplete, upright: Mean: 5.9 Range: 2.9-10.8 Na-replete, upright: Mean: 1.0 Range: < or=0.6-3.0 ADDITIONAL INFORMATION Testing performed by Liquid Chromatography-Tandem Mass Spectrometry (LC-MS/MS). Test Performed by: [place] [address] Flange Machine Operator: Celio Espinosa II, M.D., Ph.D. 45 [facility] Severe Sepsis and Septic Shock Management Bundle Measure requires all lactic acids initially measuring >2.0mmol/L be repeated. 46 Because ethnic data is not always readily available, this report includes an eGFR for both -Americans and non- Americans. The National Kidney Disease Education Program (NKDEP) does not endorse the use of the MDRD equation for patients that are not between the ages of 18 and 70, are , have extremes of body size, muscle mass, or nutritional status, or are non- or non-. According to the National Kidney Foundation, irrespective of diagnosis, the stage of the disease is based on the level of kidney function: Stage Description GFR(mL/min/1.73 m(2)) 1 Kidney damage with normal or decreased GFR 90 2 Kidney damage with mild decrease in GFR 60-89 3 Moderate decrease in GFR 30-59 4 Severe decrease in GFR 15-29 5 Kidney failure <15 (or dialysis) 47 Acute inflammation: >10.00 48 Reference Range and Interpretation: TnI (ng/mL) Interpretation Less Than 0.03 ng/mL Not supportive of diagnosis of [place] 0.03 - 0.50 ng/mL Indeterminate: suggest serial studies if clinically indicated. Greater than 0.5 ng/mL Consistent with diagnosis of [place] 49 Because ethnic data is not always readily available, this report includes an eGFR for both -Americans and non- Americans. The National Kidney Disease Education Program (NKDEP) does not endorse the use of the MDRD equation for patients that are not between the ages of 18 and 70, are , have extremes of body size, muscle mass, or nutritional status, or are non- or non-. According to the National Kidney Foundation, irrespective of diagnosis, the stage of the disease is based on the level of kidney function: Stage Description GFR(mL/min/1.73 m(2)) 1 Kidney damage with normal or decreased GFR 90 2 Kidney damage with mild decrease in GFR 60-89 3 Moderate decrease in GFR 30-59 4 Severe decrease in GFR 15-29 5 Kidney failure <15 (or dialysis) 50 PT IS FASTING 51 Desirable <150 Borderline high 150-199 High 200-499 Very High >500 52 Desirable <200 Borderline high 200-239 High >239 53 Low <40 Desirable: 40-60 High: >60 54 Desirable: <100 mg/dL Near Optimal: 100-129 mg/dL Borderline High: 130-159 mg/dL High: 160-189 mg/dL Very High: >189 mg/dL 55 No bands detected 56 Specific serologic response to B. burgdorferi infection is not detected, but cannot rule out early infection during which low or undetectable antibody levels to B. burgdorferi may be present. If clinically indicated, a new serum specimen should be submitted in 7-14 days. ADDITIONAL INFORMATION CDC criteria require >=5 bands for IgG or >=2 bands for IgM for the Immunoblot to be considered positive. Bands (e.g.,p41) may be detected in patients without Lyme disease, and patterns not meeting the CDC criteria should be interpreted with caution. Immunoblot should be ordered only on specimens that are positive or equivocal by a FDA-licensed Lyme disease antibody screening test (e.g., EIA). Test Performed by: [place] [address] Flange Machine Operator: Celio Espinosa II, M.D., Ph.D. 57 PT IS FASTING 58 Because ethnic data is not always readily available, this report includes an eGFR for both -Americans and non- Americans. The National Kidney Disease Education Program (NKDEP) does not endorse the use of the MDRD equation for patients that are not between the ages of 18 and 70, are , have extremes of body size, muscle mass, or nutritional status, or are non- or non-. According to the National Kidney Foundation, irrespective of diagnosis, the stage of the disease is based on the level of kidney function: Stage Description GFR(mL/min/1.73 m(2)) 1 Kidney damage with normal or decreased GFR 90 2 Kidney damage with mild decrease in GFR 60-89 3 Moderate decrease in GFR 30-59 4 Severe decrease in GFR 15-29 5 Kidney failure <15 (or dialysis) 59 Because ethnic data is not always readily available, this report includes an eGFR for both -Americans and non- Americans. The National Kidney Disease Education Program (NKDEP) does not endorse the use of the MDRD equation for patients that are not between the ages of 18 and 70, are , have extremes of body size, muscle mass, or nutritional status, or are non- or non-. According to the National Kidney Foundation, irrespective of diagnosis, the stage of the disease is based on the level of kidney function: Stage Description GFR(mL/min/1.73 m(2)) 1 Kidney damage with normal or decreased GFR 90 2 Kidney damage with mild decrease in GFR 60-89 3 Moderate decrease in GFR 30-59 4 Severe decrease in GFR 15-29 5 Kidney failure <15 (or dialysis) 60 -- REFERENCE VALUE -- 25-HYDROXY D TOTAL (D2+D3) Optimum levels in the healthy population are 20-50, patients with bone disease may benefit from higher levels within this range. Test Performed by: [place] [address] Flange Machine Operator: Dragan Russell III, M.D. Procedures Date CPT Code Description Status 11/29/2013 Colonoscopy Completed 01/06/2000 Colonoscopy Completed Encounters Type Date Location Provider CPT E/M Dx Office Visit 11/09/2017 10:20a Main Office Davin Dotson MD G0438 Z00.01 I10 G47.33 M35.3 Office Visit 09/29/2017 1:40p [place] [address] I10 G47.33 R53.83 Office Visit 09/14/2017 3:40p [place] [address] G47.33 R53.83 I10 R10.10 M54.5 J30.9 Office Visit 07/27/2017 9:40a [place] [address] M35.3 I10 Office Visit 07/12/2017 11:40a [place] [address] I10 M35.3 R53.83 R51 J30.9 R42 Office Visit 03/02/2017 9:40a [place] [address] J30.9 R42 H61.23 M35.3 Office Visit 08/24/2016 12:00p [place] [address] M35.3 Office Visit 08/18/2016 12:00p [place] [address] M62.81 M25.542 Office Visit 03/03/2016 1:40p [place] [address] R06.83 R53.83 R79.9 H81.10 N63 Office Visit 11/11/2015 11:40a [place] [address] D44.11 Office Visit 10/08/2015 10:40a [place] [address] Z00.01 D44.11 Office Visit 06/30/2015 10:00a [place] [address] K56.69 D44.11 R79.9 Office Visit 05/12/2015 2:20p [place] [address] K42.9 Office Visit 05/06/2015 3:20p [place] [address] J20.9 Office Visit 12/31/2014 10:00a [place] [address] M76.32 M20.41 M20.42 M19.071 M19.072 R26.89 Office Visit 10/02/2014 10:40a [place] [address] V70.0 780.79 719.49 268.9 735.4 V03.82 Office Visit 10/09/2013 1:20p [place] [address] 719.49 726.65 726.10 Office Visit 08/09/2013 3:00p [place] [address] V70.0 V76.51 448.1 726.65 268.9 Office Visit 08/22/2012 3:00p [place] [address] 719.49 268.9 786.09 V76.51 Office Visit 07/31/2012 1:40p [place] [address] V70.0 786.09 448.1 735.4 719.47 719.49 Plan of Care Future Appointment(s):05/15/2018 10:00 am - Davin Dotson MD at Main Fywxnx1111/09/2017 - Davin Dotson MDZ00.01 Encounter for general adult medical exam w abnormal findingsNew Medication:Shingrix 50 mcgPrevnar 13Comments :Age, sex and risk appropriate preventive care recommendations discussed with patient. Physical findings discussed in detail.Patient verbalized understanding. Lifestyle and dietary modifications advised.I10 Essential ( primary) hypertensionComments:Clinically stable and asymptomatic.G47.33 Obstructive sleep apnea (adult) (pediatric)Comments:Advised to discuss his concerns with sleep clinic and work on weight loss.M35.3 Polymyalgia rheumaticaComments:Advised to stay on prednisone 10 mg daily for now and from February 02,AllFollow up:6M for HTN, PMR with labs before visit.
[2017-11-20 20:01] VITALS: BP 117/76
--- NOTE | 2017-11-20 21:01 | UC ---
Skin Complaint HPI - HPI Summary HPI Summary: 67 yo male presents with bee sting to left lower leg. He tells me that 2 days ago he was stung by a bee here. This morning noticed increased redness and itchiness to the area. Has been taking benadryl and applying hydrocortisone cream. Denies fever, chills. - History of Current Complaint Chief Complaint: UCSkin Time Seen by Provider: 11/20/17 21:00 Stated Complaint: BEE STING Hx Obtained From: Patient Onset/Duration: Gradual Onset Current Severity: None Pain Intensity: 0 - Allergy/Home Medications Allergies/Adverse Reactions: Allergies Allergy/AdvReac Type Severity Reaction Status Date / Time Penicillins Allergy Rash Verified 11/20/17 20:02 ENVIRONMENTAL/SEASONAL Allergy Sneezing Uncoded 11/20/17 20:02 Home Medications: Home Medications LevoCETirizine TAB (NF) [Xyzal TAB (NF)] 5 mg PO DAILY 11/20/17 [History Confirmed 11/20/17] Review of Systems Constitutional: Negative Skin: Other - Redness and itching left lower leg Respiratory: Negative Cardiovascular: Negative Neurovascular: Negative Neurological: Negative Psychological: Negative All Other Systems Reviewed And Are Negative: Yes PMH/Surg Hx/FS Hx/Imm Hx - Additional Past Medical History Additional PMH: Seasonal allergies PMR - Surgical History Surgical History: Yes Surgery Procedure, Year, and Place: 1999' BILATERAL EYE SURGERY, ONE WAS LASIK AND ONE PRK, [place]. 2006 MITRAL VALVE REPAIR, [facility], UMBILICAL HERNIA REPAIR 06/18/15 - Family History Known Family History: Positive: None Family History: No FHx of Malignant Hyperthermia. No FHx of Anesthesia Reaction - Social History Occupation: Retired Lives: With Family Alcohol Use: Rare Alcohol Amount: SOCIALLY Substance Use Type: None Smoking Status (MU): Former Smoker Type: Cigarettes Amount Used/How Often: 1 PPD FOR 10 YEARS Have You Smoked in the Last Year: No When Did the Patient Quit Smoking/Using Tobacco: 1980 - Immunization History Most Recent Influenza Vaccination: 2014 Most Recent Tetanus Shot: within last 10 years Most Recent Pneumonia Vaccination: 2014 Physical Exam - Summary Physical Exam Summary: GENERAL: NAD. WDWN. No pain distress. SKIN: Left lower leg: Posterior aspect with moderate erythema 10.0cm in length and 4.0cm in width. Central bee sting without appreciable stinger. No streaking , bleeding, or drainage. NECK: Supple. Nontender. No lymphadenopathy. CHEST: No accessory muscle use. Breathing comfortably and in no distress. CV: Pulses intact. Cap refill <2seconds NEURO: Alert. CN II-XII grossly intact. PSYCH: Age appropriate behavior. Triage Information Reviewed: Yes Vital Signs: Initial Vital Signs Temp 98.6 F 11/20/17 19:54 Pulse 69 11/20/17 19:54 Resp 16 11/20/17 19:54 BP 117/76 11/20/17 19:54 Pulse Ox 99 11/20/17 19:54 Vital Signs Reviewed: Yes Course/Dx - Course Course Of Treatment: Cellulitis s/p bee sting - Diagnoses Provider Diagnoses: Cellulitis left lower leg Discharge - Sign-Out/Discharge Documenting (check all that apply): Patient Departure - Discharge Plan Condition: Stable Disposition: HOME Prescriptions: Cephalexin CAP* [Keflex CAP*] 500 mg PO BID #14 cap Triamcinolone 0.1% CREAM (NF) [Kenalog 0.1% Cream (NF)] 1 applic TOPICAL BID #1 tube Patient Education Materials: Cellulitis (DC), Insect Bite or Sting (ED) Referrals: Davin Dotson MD [Primary Care Provider] - Additional Instructions: If you develop a fever, shortness of breath, chest pain, new or worsening symptoms - please call your PCP or go to the ED. - Billing Disposition and Condition Condition: STABLE Disposition: Home
== END 2017-11-20 21:39 | disposition home or self-care (01) ==
LOC: UCEAST 19:02
DX: T63.441A Toxic effect of venom of bees, accidental (unintentional), initial encounter (principal); L03.116 Cellulitis of left lower limb; Y92.9 Unspecified place or not applicable; Z87.891 Personal history of nicotine dependence; Z88.0 Allergy status to penicillin
CPT/HCPCS: 99212; G0463

== ENCOUNTER 2018-12-07 19:21 | Emergency (ER) | payer MEDICARE ==
--- OUTSIDE RECORDS SUMMARY | 2018-12-07 20:45 | XMS REPORT | Continuity of Care Document ---
:1950 External Reference #:[id number] Author Name Davin Dotson MD Address [address] [place] [id number] Care Team Providers Name Role Phone Oni Chavez MD - Cardiovascular Care Team Information Retirement Benefits Specialist [phone] Disease Davin Dotson MD FACP - Care Team Information Retirement Benefits Specialist [phone] Internal Medicine Mendoza Castillo MD - Surgery Care Team Information Retirement Benefits Specialist Armando Nielsen MD - Pulmonary Care Team Information Retirement Benefits Specialist [phone] Disease Hermes Villafana MD - Adult Care Team Information Retirement Benefits Specialist [phone] Reconstructive Orthopaedic Surgery Problems Active Problems Provider Date Chronic sinusitis Davin Dotson MD Onset: 05/15/2018 Essential hypertension Davin Dotson MD Onset: 05/15/2018 Obstructive sleep apnea syndrome Davin Dotson MD Onset: 09/14/2017 Polymyalgia rheumatica Davin Dotson MD Onset: 08/24/2016 Localized, primary osteoarthritis of the Davin Dotson MD Onset: 2014 ankle and/or foot Hammer toe Davin Dotson MD Onset: 10/02/2014 Non-neoplastic nevus Davin Dotson MD Onset: 07/31/2012 Social History Type Date Description Comments Sex Unknown ETOH Use Currently consumes 5 per week "Cochise alcohol or [place]" till 2014 and reduced use to 2-3 per week as of 2015. Tobacco Use Start: Unknown End: Patient is a former 1 PPD for 10 years, Unknown smoker "Qiut in 1980" Recreational Drug Use Denies Drug Use Smoking Status Reviewed: 04/04/80 Patient is a former 1 PPD for 10 years, smoker "Qiut in 1980" Exercise Type/Frequency Exercises regularly Play golf during summer. Allergies, Adverse Reactions, Alerts Active Allergies Reaction Severity Comments Date Penicillin Rash Moderate 11/29/2011 Medications Active Medications SIG Qnty Indications Ordering Provider Date Prednisone 10 by mouth every 300tabs M35.3 Ijn A 01/03/2018 1mg day or as MD Mauri Tablets recommended. Cpap G47.33 Armando Nielsen, 10/17/2017 Amlodipine Besylate take 1 tablet by 90tabs I10 Jin A 09/14/2017 mouth daily for MD Mauri 2.5mg Tablets high blood pressure History Medications Prednisone 1 by mouth 30tabs M35.3 Jin A Mauri 08/16/2018 - 10mg every day 11/15/2018 Tablets Immunizations CPT Code Status Date Vaccine Lot # [id number] Given 09/21/2018 Shingrix (Shingles) Vaccine 38647 Given 02/06/2018 Influenza Virus Vaccine, Quadrivalent (Cciiv4), Derived From Cell 30278 Given 11/10/2017 Prevnar (Pneumonia) 13 Vaccine 71543 Given 01/01/2017 Influenza Vaccine Quadrivalent Preser/Antibiotic Free Im Use 23718 Given 01/22/2016 Influenza Virus Split 3 Yrs And Above For Intramuscular Use 44007 Given 01/03/2016 Influenza Virus Split 3 Yrs And Above For Intramuscular Use U-Flu Given 02/14/2015 Influenza,Unspecified 92854 Given 02/14/2015 Influenza Virus Split 3 Yrs And Above For Intramuscular Use 36926 Given 10/02/2014 Pneumococcal Vaccine 2Yrs Or Older [id number] 05010 Given 12/03/2013 Zoster Shingles Vaccine For Subcutaneous Injection 03053 Given 08/03/2011 Tdap-Tetanus, Diphtheria Toxoids/Acellular Pertussis Vaccine 7+ 12842 Given 12/03/2010 Influenza Virus Split 3 Yrs And Above For Intramuscular Use Vital Signs Date Vital Result Comment 11/15/2018 10:29am Body Temperature 97.9 F O2 % BldC Oximetry 96 % Heart Rate 59 /min BP Systolic 165 mmHg BP Diastolic 85 mmHg BMI (Body Mass Index) 29.4 kg/m2 Weight 218.00 lb Height 72.25 inches 6'0.25" 08/02/2018 10:13am Heart Rate 78 /min BP Systolic 130 mmHg BP Diastolic 80 mmHg Weight 230.00 lb Results Test Date Facility Test Result H/L Range Note Laboratory test 11/15/2018 [facility] Uric Acid 6.5 mg/dL Normal 4.4-7.6 [place] [address] [phone] Xray 11/15/2018 [facility] Foot, OA [address], [place] [address] Right [phone] CBC No Diff 11/09/2018 [facility] White Blood 7.2 10^3/uL Normal 3.5-10.8 [place] [address] Count [phone] Red Blood Count 5.16 10^6/uL Normal 4.18-5.48 Hemoglobin 16.2 g/dL Normal 14.0-18.0 Hematocrit 46 % Normal 42-52 Mean Corpuscular Volume 90 fL Normal 80-94 Mean Corpuscular Hemoglobin 31 pg Normal 27-31 Mean Corpuscular HGB Conc 35 g/dL Normal 31-36 Red Cell Distribution Width 14 % Normal 10-15 Platelet Count 218 10^3/uL Normal 150-450 Mean Platelet Volume 8.4 fL Normal 7.4-10.4 Comp Metabolic 11/09/2018 [facility] Sodium 140 mmol/L Normal 135-145 [place] [address] [phone] Potassium 4.1 mmol/L Normal 3.5-5.0 Chloride 109 mmol/L Normal 101-111 Co2 Carbon Dioxide 24 mmol/L Normal 22-32 Anion Gap 7 mmol/L Normal 2-11 Glucose 97 mg/dL Normal 70-100 Blood Urea Nitrogen 23 mg/dL Normal 6-24 Creatinine 1.10 mg/dL Normal 0.67-1.17 BUN/Creatinine Ratio 20.9 High 8-20 Calcium 9.3 mg/dL Normal 8.6-10.3 Total Protein 6.2 g/dL Low 6.4-8.9 Albumin 4.1 g/dL Normal 3.2-5.2 Globulin 2.1 g/dL Normal 2-4 Albumin/Globulin Ratio 2.0 Normal 1-3 Total Bilirubin 0.60 mg/dL Normal 0.2-1.0 Alkaline Phosphatase 69 U/L Normal 34-104 Alt 19 U/L Normal 7-52 Ast 14 U/L Normal 13-39 Egfr Non- 66.4 >60 Egfr 80.3 >60 1 Laboratory test 11/09/2018 [facility] Erythrocyte Sed 4 mm/Hr Normal 0-19 2 [place] [address] Rate [phone] Lipid Profile 11/09/2018 [facility] Triglycerides 66 mg/dL < 150 3 (Trig/Chol/HDL) [place], [place] [address] [phone] Cholesterol 141 mg/dL <200 4 HDL Cholesterol 56.2 mg/dL >40 5 LDL Cholesterol 72 mg/dL <130 6 Laboratory test 11/09/2018 [facility] Hemoglobin A1c 5.3 % Normal 4.0-5.6 7 [place] [address] (Glyco HGB) [phone] PSA Screening 1.291 ng/mL Normal 0-4.000 8 Urinalysis Profile 11/09/2018 [facility] Urine Color Yellow [place], [place] [address] [phone] Urine Appearance Clear Urine Specific [place] 1.026 Normal 1.010-1.030 Urine pH 5.0 Normal 5-9 Urine Urobilinogen Negative Negative Urine Ketones Negative Negative Urine Protein Negative Negative Urine Leukocytes Negative Negative Urine Blood Negative Negative Urine Nitrite Negative Negative Urine Bilirubin Negative Negative Urine Glucose Negative Negative 1 Because ethnic data is not always [...] 5 Kidney failure <15 (or dialysis) 2 FASTING 3 Desirable: <150 Borderline High: 150-199 High: 200-499 Very High: >500 4 Desirable: <200 Borderline High: 200-239 High: >239 5 Low: <40 Desirable: 40-60 High: >60 6 Desirable: <100 Near Optimal: 100-129 Borderline High: 130-159 High: 160-189 Very High: >189 7 Therapeutic target for the treatment of diabetes mellitus patients is <7% HBA1C, and in selective patients <6.0%. Please refer to [place] [employer] diabetic care guidelines for further information. 8 Serum levels of PSA measured using the Pradeep Cellwitch DXI Hybritech immunoassay should not be interpreted as absolute evidence of the presence or absence of disease. The PSA value should be used in conjunction with other pertinent clinical diagnostic procedures. The values obtained with different assay methods or kits cannot be used interchangeably. Procedures Date Code Description Status 11/29/2013 32841970 Colonoscopy Completed 01/06/2000 29138115 Colonoscopy Completed Medical Devices Description No Information Available Encounters Type Date Location Provider Dx Diagnosis Office Visit 11/15/2018 Main Office Davin Dotson, Z00.01 Encounter for 10:20a general adult medical exam w abnormal findings R10.10 Upper abdominal pain, unspecified M79.671 Pain in right foot M35.3 Polymyalgia rheumatica I10 Essential (primary) hypertension G47.33 Obstructive sleep apnea (adult) (pediatric) Office Visit 08/02/2018 10:20a Main Office Davin Aguillon M35.3 Polymyalgia MD Mauri rheumatica Assessments Date Code Description Provider 11/15/2018 Z00.01 Encounter for general adult medical Davin Dotson MD examination with abnormal findings 11/15/2018 R10.10 Upper abdominal pain, unspecified Davin Dotson MD 11/15/2018 M79.671 Pain in right foot Davin Dotson MD 11/15/2018 M35.3 Polymyalgia rheumatica Davin Dotson MD 11/15/2018 I10 Essential (primary) hypertension Davin Dotson MD 11/15/2018 G47.33 Obstructive sleep apnea (adult) (pediatric) Davin Dotson MD 08/02/2018 M35.3 Polymyalgia rheumatica Davin Dotson MD Plan of Treatment Future Appointment(s):05/21/2019 10:00 am - Davin Dotson MD at Main [id number]/15/2018 - Davin Dotson MDZ00.01 Encounter for general adult medical examination with abnormal findingsComments:Age, sex and risk appropriate preventive care recommendations discussed with patient. Physical findings discussed in detail.Patient verbalized understanding.R10.10 Upper abdominal pain, unspecifiedComments:? hiatal hernia related symptoms.Advised to consider US but he declined.M79.671 Pain in right footComments:Advised to consult with Dr. Villafana.Referral:Hermes Villafana MD, Surgery,Ortho Adult KqvbbL85.3 Polymyalgia rheumaticaComments:Clinically stable. Continue recommended plan of care. Follow up recommendations discussed. Encouraged to continue efforts related to modification of life style. Lifestyle and dietary modifications advised. Medications related potential side effects, general precautions, follow up recommendations discussed with patient in detail. Patient verbalized understanding.I10 Essential (primary) hypertensionComments: He is not monitoring his BP and was advised to do so.He wishes no increase or addition of medication.Lifestyle and dietary modifications advised.G47.33 Obstructive sleep apnea (adult) (pediatric)Comments:Clinically stable. Continue recommended plan of care. Follow up recommendations discussed. Encouraged to continue efforts related to modification of life style.AllFollow up:1-1 and 2 month portal check for BP. 2-6M for PMR and HTN. Functional Status Description No Information Available Mental Status Description No Information Available Referrals Refer to Reason for Referral Status Appt Date Hermes Villafana MD Sent [address] [facility], [place] [address] [phone]
--- OUTSIDE RECORDS SUMMARY | 2018-12-07 20:45 | XMS REPORT | Continuity of Care Document ---
:1950 External Reference #:[id number] Author Name Hermes Villafana M.D. (transmitted by agent of provider Coleen Hyatt) Address [address] [place] [id number] Care Team Providers Name Role Phone Software Packaging Engineer Prosthetics & Orthotics - Care Team Information Hanger Off Prosthetic/Orthotic Supplier Davin Dotson MD - Internal Care Team Information Hanger Off [phone] Medicine Problems Active Problems Provider Date Mitral valve disorder Oni Chavez M.D. Onset: 05/24/2013 Difficulty breathing Cleo Nielsen MD Onset: 05/04/2016 Obstructive sleep apnea syndrome Cleo Nielsen MD Onset: 05/31/2016 Social History Type Date Description Comments Sex Unknown Tobacco Use Start: Unknown End: Former Cigarette Smoker Unknown Smoking Status Reviewed: 11/16/18 Former Cigarette Smoker ETOH Use Occasionally consumes 5 times a week alcohol Tobacco Use Start: Unknown End: Patient is a former Quit 1981 Unknown smoker Recreational Drug Use Denies Drug Use Exercise Type/Frequency Exercises regularly 5-6Xweek to gym Allergies, Adverse Reactions, Alerts Active Allergies Reaction Severity Comments Date Penicillin 10/30/2012 Medications Active Medications SIG Qnty Indications Ordering Date Provider Prednisone 4 tablets daily Mauri, 08/06/2016 1mg Tablets MD Davin Benadryl Allergy as needed Unknown 25mg Tablets Amlodipine Besylate Take 1 Tablet By Unknown 2.5mg Mouth Every Day Tablets For High Blood Pressure Levocetirizine Take 1 Tablet By Unknown Dihydrochloride Mouth prn 5mg Tablets Prednisone take four tablets Unknown 1mg Tablets by mouth in addition to 1/2 of 10mg tab daily. Cpap via mask used Unknown when sleeping Immunizations Description No Information Available Vital Signs Date Vital Result Comment 11/16/2018 11:26am Height 73 inches 6'1" Weight 218.00 lb Heart Rate 59 /min BP Systolic 138 mmHg BP Diastolic 88 mmHg Body Temperature 97.0 F Pain Level 8 BMI (Body Mass Index) 28.8 kg/m2 07/19/2018 9:32am Height 73 inches 6'1" Weight 230.50 lb Heart Rate 70 /min BP Systolic Sitting 130 mmHg large adult cuff left arm BP Diastolic Sitting 84 mmHg large adult cuff left arm Respiratory Rate 24 /min O2 % BldC Oximetry 91 % at rest on room air BMI (Body Mass Index) 30.4 kg/m2 Results Description No Information Available Procedures Description No Information Available Medical Devices Description No Information Available Encounters Type Date Location Provider Dx Diagnosis Office Visit 07/19/2018 Pulmonology And Macrina Gutierrez, G47.33 Obstructive sleep 9:45a [facility] [place] apnea (adult) Parts Picker (pediatric) R09.81 Nasal congestion H57.89 Other specified disorders of eye and adnexa E66.3 Overweight Z68.30 Body mass index (BMI) 30.0-30.9, adult Assessments Date Code Description Provider 11/16/2018 M76.821 Posterior tibial tendinitis, right Hermes Villafana M.D. leg 07/19/2018 G47.33 Obstructive sleep apnea (adult) Macrina Gutierrez DNP, RN, [facility] (pediatric) 07/19/2018 R09.81 Nasal congestion Macrina Gutierrez DNP, RN, [place] 07/19/2018 H57.89 Other specified disorders of eye Macrina Gutierrez DNP, RN , [facility] and adnexa 07/19/2018 E66.3 Overweight Macrina Gutierrez DNP, RN, [place] 07/19/2018 Z68.30 Body mass index (BMI) 30.0-30.9, Macrina Gutierrez DNP, RN , [facility] adult Plan of Treatment 11/16/2018 - Hermes Villafana M.D.M76.821 Posterior tibial tendinitis, right legNew Xrays:Foot Right 3+ VWS, Ordered: 11/16/18Follow up:after testing is completed Functional Status Description No Information Available Mental Status Description No Information Available Referrals Description No Information Available
--- OUTSIDE RECORDS SUMMARY | 2018-12-07 20:45 | XMS REPORT | Continuity of Care Document ---
:1950 External Reference #:[id number] Author Name Hermes Villafana M.D. (transmitted by agent of provider Coleen Hyatt) Address [address] [place] [phone] Care Team Providers Name Role Phone Chef Manager Prosthetics & Orthotics - Care Team Information Eligibility Manager Prosthetic/Orthotic Supplier Davin Dotson MD - Internal Care Team Information Eligibility Manager Medicine Problems Active Problems Provider Date Mitral valve disorder Oni Chavez M.D. Onset: 05/24/2013 Difficulty breathing Cleo Nielsen MD Onset: 05/04/2016 Obstructive sleep apnea syndrome Cleo Nielsen MD Onset: 05/31/2016 Social History Type Date Description Comments Sex Unknown Tobacco Use Start: Unknown End: Former Cigarette Smoker Unknown Smoking Status Reviewed: 12/05/18 Former Cigarette Smoker ETOH Use Occasionally consumes [...] Available Vital Signs Date Vital Result Comment 12/05/2018 7:59am Height 73 inches 6'1" Weight 218.00 lb Heart Rate 67 /min BP Systolic 126 mmHg BP Diastolic 72 mmHg Respiratory Rate 16 /min Body Temperature 97.0 F Pain Level 0 BMI (Body Mass Index) 28.8 kg/m2 11/16/2018 11:26am Height 73 inches 6'1" Weight 218.00 lb Heart Rate 59 /min BP Systolic 138 mmHg BP Diastolic 88 mmHg Body Temperature 97.0 F Pain Level 8 BMI (Body Mass Index) 28.8 kg/m2 Results Description No Information Available Procedures Description No Information Available Medical Devices Description No Information Available Encounters Type Date Location Provider Dx Diagnosis Office Visit 11/16/2018 Orthopedic Hermes Broderick, M76.821 Posterior tibial 10:45a [facility], right leg Office Visit 07/19/2018 [facility] Macrina Gutierrez, G47.33 Obstructive sleep 9:45a [facility] [place] apnea (adult) Popcorn Vendor (pediatric) R09.81 Nasal congestion H57.89 Other specified disorders of eye and adnexa E66.3 Overweight Z68.30 Body mass index (BMI) 30.0-30.9, adult Assessments Date Code Description Provider 12/05/2018 M76.821 Posterior tibial tendinitis, right Hermes Villafana M.D. leg 11/16/2018 M76.821 Posterior tibial tendinitis, right Hermes Villafana M.D. leg 07/19/2018 G47.33 Obstructive sleep apnea (adult) Macrina Gutierrez DNP RN, [facility] (pediatric) 07/19/2018 R09.81 Nasal congestion Macrina Gutierrez DNP, RN, [facility] 07/19/2018 H57.89 Other specified disorders of eye Macrina Gutierrez DNP, RN , [place] and adnexa 07/19/2018 E66.3 Overweight Macrina Gutierrez DNP, RN, [facility] 07/19/2018 Z68.30 Body mass index (BMI) 30.0-30.9, Macrina Gutierrez DNP, RN , [facility]- adult Plan of Treatment Future Appointment(s):01/23/2019 10:00 am - [facility]2018 - Hermes Villafana M.D.M76.821 Posterior tibial tendinitis, right legNew Therapy:Rehab ReferralFollow up:4-5 weeks Functional Status Description No Information Available Mental Status Description No Information Available Referrals Description No Information Available
--- NOTE | 2018-12-07 22:53 | ED ---
Palpitations / Dysrhythmia - HPI Summary HPI Summary: This pt is a 68 Y/O M presenting to [facility] accompanied by his with a CC of a heart rate in the 30s at home at 1938 today. He stated that he was taking his BP at home when he noticed his HR due to the type of blood pressure cuff that he has. He denies any CP, SOB, fevers, chills, abdominal pain, decreased appetite, N/V/D, and headaches. He had a doctors appointment on 12/04/18 and his HR was in the 60s. He denies any heart attack, stents, or angioplasty. He states that in 2006 he had a mitral valve repair. He states that he has never had these symptoms before. He has a SHx of smoking but quit in 1980. He states that he drinks occasionally. He had a rum and coke [employer]. He has no aggravating or alleviating symptoms. He has a PMHx of hypertension. - History of Current Complaint Chief Complaint: EDDysrhythmPalp Time Seen by Provider: 12/07/18 22:38 Hx Obtained From: Patient Onset/Duration: Sudden Onset, Lasting Minutes, Resolved Timing: Constant Character: Slow - HR in the 30s Aggravating: Nothing Alleviating: Nothing Associated Signs & Symptoms: Negative - CP, SOB, fevers, chills, abdominal pain , decreased appetite, N/V/D, and headaches - Allergy/Home Medications Allergies/Adverse Reactions: Allergies Allergy/AdvReac Type Severity Reaction Status Date / Time Penicillins Allergy Rash Verified 11/20/18 14:47 ENVIRONMENTAL/SEASONAL Allergy Sneezing Uncoded 11/20/18 14:47 Home Medications: Home Medications amLODIPine TAB* [Norvasc 5 mg TAB*] 2.5 mg PO DAILY 12/07/18 [History Confirmed 12/07/18] predniSONE TAB* [Deltasone 1 MG TAB*] 7 mg PO DAILY 12/07/18 [History Confirmed 12/07/18] PMH/Surg Hx/FS Hx/Imm Hx Previously Healthy: Yes Endocrine/Hematology History: Denies: Hx Diabetes Cardiovascular History: Reports: Hx Hypertension, Other Cardiovascular Problems/ Disorders - MITRAL VALVE REPLACE 2006 AT [facility] Denies: Hx Pacemaker/ICD Respiratory History: Reports: Hx Asthma, Hx Seasonal Allergies, Hx Sleep Apnea - HE THINKS IT IS POSSIBLE, BUT HAS NEVER BEEN TESTED GI History: Reports: Hx Irritable Bowel History: Reports: Hx Kidney Stones - YEARS AGO - PASSED, Hx Renal Disease - KIDNEY STONES Musculoskeletal History: Reports: Hx Arthritis Sensory History: Reports: Hx Contacts or Glasses Denies: Hx Hearing Aid Opthamlomology History: Reports: Hx Contacts or Glasses Psychiatric History: Denies: Hx Panic Disorder - Cancer History Hx Hematologic Symptoms: No Hx Chemotherapy: No - Surgical History Surgery Procedure, Year, and Place: BILATERAL EYE SURGERY, ONE WAS LASIK AND ONE PRK (LASER), [place]. 2006 MITRAL VALVE REPAIR, [facility],- PATIENT BRINGING IN CARD WITH INFO-ANNULOPLASTY BAND. UMBILICAL HERNIA REPAIR Hx Anesthesia Reactions: No - Immunization History Date of Tetanus Vaccine: 2011 Infectious Disease History: No Infectious Disease History: Denies: Traveled Outside the [place] in Last 30 Days - Family History Known Family History: Positive: None Family History: No FHx of Malignant Hyperthermia. No FHx of Anesthesia Reaction - Social History Alcohol Use: Rare Alcohol Amount: SOCIALLY Substance Use Type: Reports: None Hx Tobacco Use: No Smoking Status (MU): Former Smoker Type: Cigarettes Amount Used/How Often: 1 PPD FOR 10 YEARS Have You Smoked in the Last Year: No Review of Systems Constitutional: Negative - decreased appetite Negative: Fever, Chills Negative: Chest Pain Negative: Shortness Of Breath Negative: Abdominal Pain, Vomiting, Diarrhea, Nausea Negative: Headache All Other Systems Reviewed And Are Negative: Yes Physical Exam - Summary Physical Exam Summary: General: Well-developed, Obese male. No acute distress. HEENT: Normocephalic, Atraumatic. Eyes: Conjuctiva normal, PERRL. Ears: TMs within normal limits. Nares: (-) discharge, (-) erythema. Oropharynx: Clear, mucous membranes moist, (-) exudates. Neck: Soft, FROM, (-) lymphadenopathy, (-) thyromegaly, (-) JVD. Cardiovascular: Normal sinus rhythm, (-) murmur. Lungs: Clear to auscultation bilaterally (-) wheezes, (-) rales, (-) rhonchi. Abdomen: Soft, non-tender, non-distended, (-) organomegaly, normal bowel sounds. Back: (-) CVA tenderness Extremities: No edema. Skin: Warm, dry, (-) rash. Neuro: Alert and oriented x3, no focal deficits. Psychiatric: Mood normal, affect normal. Triage Information Reviewed: Yes Vital Signs On Initial Exam: Initial Vitals Temp Pulse Resp BP Pulse Ox 98.8 F 36 18 156/79 95 12/07/18 19:27 12/07/18 19:27 12/07/18 19:27 12/07/18 19:27 12/07/18 19:27 Vital Signs Reviewed: Yes Diagnostics - Vital Signs Vital Signs Temp Pulse Resp BP Pulse Ox 12/07/18 21:42 98.2 F 32 20 126/72 98 12/07/18 19:27 98.8 F 36 18 156/79 95 - Laboratory Result Diagrams: 12/07/18 23:06 12/07/18 23:06 Lab Statement: Any lab studies that have been ordered have been reviewed, and results considered in the medical decision making process. - Radiology CXR Radiology Interpretation Completed By: ED Physician Summary of Radiographic Findings: cardiomegaly which is consistent with past results. No acute processes. PPending offical review. - EKG 1931 Cardiac Rate: NL - 80 BPM EKG Rhythm: Sinus Rhythm EKG Comparison: No Significant Change Summary of EKG Findings: EKG at 1931 shows a NSR at 80 BPMs and supraventricular bigeminy. No acute changes from previous [place] [address]312/07/18. 1936 Cardiac Rate: NL - 85 BPMs EKG Rhythm: Sinus Rhythm Ectopy: None EKG Comparison: No Significant Change Summary of EKG Findings: EKG at 1936 shows a NSR at 85 BPMs and supraventricular bigeminy. No acute changes from previous EKG. Interpreted [place] Dr. [place]uro at 193712/07/18. Course/Dx - Course Course Of Treatment: This pt is a 68 Y/O M presenting to [facility] accompanied by his with a CC of a heart rate in the 30s at home. He stated that he was taking his BP at home when he noticed his HR due to the type of blood pressure cuff that he has. He denies any CP, SOB, fevers, chills, abdominal pain, decreased appetite, N/V/D, and headaches. His PE shows no abnormalities. EKG at 1931 shows a NSR at 80 BPMs and supraventricular bigeminy. No acute changes from previous EKG. EKG at 1936 shows a NSR at 85 BPMs and supraventricular bigeminy. No acute changes from previous EKG. He has abnormal lab values in BNP. His CXR shows cardiomegaly which is consistent with past results. No acute processes. Due to the lack of abnormal findings the pt will be discharged home with a Dx of concern about heart disease without diagnosis. - Diagnoses Provider Diagnoses: Concern about heart disease without diagnosis Discharge ED - Sign-Out/Discharge Documenting (check all that apply): Patient Departure - discharge Patient Received Moderate/Deep Sedation with Procedure: No - Discharge Plan Condition: Stable Disposition: HOME Patient Education Materials: Heart Palpitations (ED), Bradycardia (ED) Referrals: Davin Dotson MD [Primary Care Provider] - 2 Days Additional Instructions: PLEASE FOLLOW UP WITH YOUR PRIMARY CARE PROVIDER IN 2-3 DAYS AND RETURN TO THE EMERGENCY DEPARTMENT FOR ANY NEW OR WORSENING SYMPTOMS. - Billing Disposition and Condition Condition: STABLE Disposition: Home - Attestation Statements Document Initiated by Yingibe: Yes Documenting Scribe: Fernando Alvarado Provider For Whom Yingibe is Documenting (Include Credential): Pham Muro MD Scribe Attestation: Fernando Crowder, scribed for Pham Muro MD on 12/08/18 at 0507. Scribe Documentation Reviewed: Yes Provider Attestation: The documentation as recorded by the Fernando fields accurately reflects the service I personally performed and the decisions made by me, Pham Muro MD Status of Scribe Document: Viewed
[2018-12-07 23:13] LABS: ABS Basophils 0.1 10^3/ul (0-0.2); ABS Eosinophils 0.2 10^3/ul (0-0.6); ABS Lymphocytes 1.6 10^3/ul (1.0-4.8); ABS Monocytes 0.6 10^3/ul (0-0.8); ABS Neutrophils 4.7 10^3/ul (1.5-7.7); Hematocrit 43 % (42-52); Hemoglobin 15.1 g/dL (14.0-18.0); Lymphocyte % 22.5 %; Mean Corpuscular HGB Conc 35 g/dL (31-36); Mean Corpuscular Hemoglobin 31 pg (27-31); Mean Corpuscular Volume 89 fL (80-94); Platelet Count 233 10^3/uL (150-450); Red Blood Count 4.83 10^6 /uL (4.18-5.48); Red Cell Distribution Width 14 % (10-15); White Blood Count 7.2 10^3/uL (3.5-10.8)
[2018-12-07 23:20] LABS: INR 1.12 (0.82-1.09)
[2018-12-07 23:33] LABS: Albumin/Globulin Ratio 1.9 (1-3); BUN/Creatinine Ratio 22.2 (8-20); Calcium 9.3 mg/dL (8.6-10.3); EGFR African American 74.6 (>60); EGFR Non-African American 61.6 (>60); Globulin 2.1 g/dL (2-4); Potassium 3.8 mmol/L (3.5-5.0); Total Bilirubin 0.8 mg/dL (0.2-1.0); Total Protein 6.1 g/dL (6.4-8.9)
[2018-12-07 23:34] LABS: Troponin I 0.01 ng/mL (<0.04)
[2018-12-08] LABS: TSH (Thyroid Stimulating Horm) 1.83 mcIU/mL (0.34-5.60)
[2018-12-08 00:53] VITALS: BP 142/75
== END 2018-12-08 00:52 | disposition home or self-care (01) ==
LOC: ED 19:21
DX: Z71.1 Person with feared health complaint in whom no diagnosis is made (principal); I47.1 Supraventricular tachycardia; I10 Essential (primary) hypertension; Z95.2 Presence of prosthetic heart valve; Z88.0 Allergy status to penicillin; Z87.891 Personal history of nicotine dependence
CPT/HCPCS: 36415; 71045; 80053; 83605; 83735; 83880; 84443; 84484; 85025; 85610; 93005; 99283